=== PATIENT | female | born 1960 | race Caucasian/White ===

== ENCOUNTER 2022-11-21 13:08 | Outpatient (REF) | payer MEDICAID, SELFPAY ==
[2022-11-23 20:44] LABS: Immunoglobulin E 2674 kU/L (<OR=114)
== END 2022-11-21 13:09 | disposition home or self-care (01) ==
LOC: HO.LAB 13:08
PROVIDERS: PCP Student in an Organized Health Care Education/Training Program; Visit Provider Nurse Practitioner Family
DX: J45.909 Unspecified asthma, uncomplicated (principal); Z91.09 Other allergy status, other than to drugs and biological substances
CPT/HCPCS: 36415; 82785; 86003; 99202

== ENCOUNTER 2023-01-05 08:15 | Outpatient (REF) | payer MEDICAID, SELFPAY ==
--- NOTE | 2023-01-05 09:06 | PFT_ITS ---
INDICATION: Asthma. SPIROMETRY: FEV1 to FVC of 86% with an FEV1 of 1.22 L, which is 53% predicted. FVC of 1.42 L, which is 48% predicted. No significant response to bronchodilators noted. Maximum voluntary ventilation 44% predicted. LUNG VOLUMES: Total lung capacity 64% predicted with an expiratory reserve volume of 57% predicted. DIFFUSION CAPACITY: DLCO 50% predicted. Thus improved to 87% predicted when correcting for the alveolar volume. COMPARISONS: None. INTERPRETATION: No obstructive ventilatory defect. No significant response to bronchodilators noted. Some evidence of small airway disease suggesting a possibility of asthma. In addition to that, there is a severe decrease in the maximum voluntary ventilation secondary to deconditioning, although rule out normal muscular conditions. Lung volumes do demonstrate a restrictive ventilatory defect consistent with mild restrictive lung disease. Cannot rule out neuromuscular conditions or parenchymal lung disease. In addition to this, there is a moderate diffusion impairment, although it does correct to normal and correcting for the alveolar volume. If asthma is in the differential, methacholine challenge will be helpful in assessing for hyperreactive airways disease. Otherwise, clinical correlation warranted. Alexandru Stevens MD MR/MODL / [id number]
== END 2023-01-05 08:16 | disposition home or self-care (01) ==
LOC: HO.RESP 08:15
PROVIDERS: Absent Provider Registered Nurse; PCP Student in an Organized Health Care Education/Training Program; Visit Provider Nurse Practitioner Family
DX: J45.909 Unspecified asthma, uncomplicated (principal); R06.02 Shortness of breath
CPT/HCPCS: 94010; 94727; 94729

== ENCOUNTER → 2023-01-05 09:06 | Outpatient (BNV) | payer MEDICAID, SELFPAY | PROVIDERS: Absent Provider Registered Nurse; PCP Student in an Organized Health Care Education/Training Program; Visit Provider Hospitalist | DX: J45.909 Unspecified asthma, uncomplicated (principal) | CPT/HCPCS: 94060; 94727; 94729 ==